=== PATIENT | male | born 1935 | race Caucasian/White ===

== ENCOUNTER 2017-08-28 14:43 | Emergency (ER) | payer OTHER, MEDICAID ==
[~2017-08-28] VITALS: Ht 182.9 cm; Wt 93.9 kg
[~2017-08-28 14:43] MED LIST: ACET325T53 PO; ALBU2.5V13 IH; ASPI-605 PO; CITA40TA22 PO; CLOP75TA15 PO; DOCU-141 PO; GABA400C PO; HYDR-3658 PO; INSU100V10 SQ; INSU100V7 SQ; IPRA42SP2 HHN; ISOS10TA2 PO; LACT10SO PO; LIDO30AD10 TP; METH5TAB70 PO; MIRT15TA PO; NICO-760 TD; OXYB5TAB29 PO; PANT40SU PO; POLY17PO4 PO; SIMV20TA2 PO; SITA100T PO; VENL150C2 PO; ZOLP10TA2 PO
--- NOTE | 2017-08-28 14:44 | NUR ---
BIB EMS WAS FOUND ALTERED AT [facility]. BS >400 IN FIELD. PT IS COMPLAINING OF BODY ACHES. PT PLACED ON CONT CARDIAC AND POX MONITORING, NAD. ALL NEEDS ARE ATTENDED, PENDING ER MD EVALUATION
[2017-08-28 15:23] LABS: BASOPHILS % (AUTO) 0.7 % (0.0-2.0); EOSINOPHILS # (AUTO) 0.1 /CMM (0.0-0.7); EOSINOPHILS % (AUTO) 3.5 % (0.0-6.0); HEMATOCRIT 41 % (39-51); HEMOGLOBIN 13.1 g/dL (13.5-17.5); LYMPHOCYTES # (AUTO) 1.6 /CMM (0.8-4.8); MEAN CORPUSCULAR HEMOGLOBIN 29 PG (26.0-33.0); MEAN CORPUSCULAR HGB CONC 32 g/dl (31.0-36.0); MEAN CORPUSCULAR VOLUME 89 fL (80-96); MONOCYTES # (AUTO) 0.3 /CMM (0.1-1.30); MONOCYTES % (AUTO) 8.6 % (2.0-12.0); NEUTROPHILS # (AUTO) 2.1 /CMM (1.8-8.9); NEUTROPHILS % (AUTO) 48.2 % (43.0-81.0); PLATELET COUNT (AUTO) 157 /CMM (150-450); RDW COEFFICIENT OF VARIATION 14.1 (11.5-15.0); RED BLOOD CELL COUNT(AUTO) 4.58 MIL/uL (4.5-6.0); WHITE BLOOD COUNT (AUTO) 4.1 K/uL (4.3-11.0)
[2017-08-28 15:46] LABS: TROPONIN I < 0.017 ng/mL (0.00-0.056)
[2017-08-28 15:47] LABS: ALANINE AMINOTRANSFERASE 17 U/L (12-78); ALBUMIN 3.3 g/dL (3.4-5.0); ALKALINE PHOSPHATASE 73 U/L (46-116); ASPARTATE AMINOTRANSFERASE 11 U/L (15-37); B-TYPE NATRIURETIC PEPTIDE 234 PG/ML (0-125); BILIRUBIN,TOTAL 0.2 mg/dL (0.2-1.0); CARBON DIOXIDE 35 mmol/L (21-32); CHLORIDE 102 mmol/L (98-107); CREATININE 1.2 mg/dL (0.6-1.3); POTASSIUM 4.7 mmol/L (3.5-5.1); SODIUM SERUM 140 mmol/L (136-145); TOTAL PROTEIN, SERUM 6.9 g/dL (6.4-8.2); UREA NITROGEN, BLOOD 14 mg/dL (7-18)
[2017-08-28 15:55] LABS: GLUCOSE 408 mg/dL (74-106)
[2017-08-28 16:07] LABS: INR 0.91 (0.87-1.13); PROTHROMBIN TIME 9.5 SECS (9.5-12.7)
--- NOTE | 2017-08-28 16:15 | NUR ---
[facility] DrYesica to
[2017-08-28 16:33] LABS: APPEARANCE,URINE CLEAR (CLEAR); BILIRUBIN,URINE NEGATIVE (NEGATIVE); BLOOD, URINE NEGATIVE Ery/uL (NEGATIVE); COLOR,URINE YELLOW (YELLOW); KETONES,URINE NEGATIVE (NEGATIVE); LEUKOCYTE ESTERASE ,URINE NEGATIVE (NEGATIVE); NITRITE, URINE NEGATIVE (NEGATIVE); PH,URINE 6.5 (5.0-8.0); PROTEIN,URINE NEGATIVE (NEGATIVE); UGLUCOSE 3+ mg/dL (NEGATIVE); UROBILINOGEN,URINE 0.2 EU/dL (0.2)
--- NOTE | 2017-08-28 16:47 | NUR ---
CALLED PHARMACY FOR INSULIN
[2017-08-28 16:53] LABS: BACTERIA,URINE Rare /HPF (None Seen); RBC,URINE 0-2 /HPF (0-2); SQUAMOUS EPITHELIAL CELL,UR Rare /HPF (None Seen); WBC,URINE 0-2 /HPF (0-3)
--- NOTE | 2017-08-28 16:59 | NUR ---
CALLED [facility] FOR TRANSPORT BACK TO [facility], ETA [phone]
[2017-08-28] MEDS: INSULIN LISPRO/ASPART 100 UNIT/ML CARTRIDGE SQ SCH (17:18)
--- NOTE | 2017-08-28 19:00 | NUR ---
Patient discharged to [facility] transport #[id number] in stable condition. Written and verbal after care instructions given. Patient verbalizes understanding of instruction.
--- NOTE | 2017-08-28 19:01 | NUR ---
IV removed. Catheter intact and site benign. Pressure and 4x4 applied to site. No bleeding noted.
[2017-08-28 19:02] VITALS: BP 137/74
== END 2017-08-28 19:07 | disposition home or self-care (01) ==
LOC: ER 14:44
DX: E11.65 Type 2 diabetes mellitus with hyperglycemia (principal); I10 Essential (primary) hypertension; Z95.1 Presence of aortocoronary bypass graft; Z98.890 Other specified postprocedural states; Z79.4 Long term (current) use of insulin; Z79.82 Long term (current) use of aspirin
CPT/HCPCS: 36415; 71010; 80048; 80076; 81001; 82962 ×2; 83880; 84484; 85025; 85730; 96372; 99285; A4606; J1815; Z7610; 81000-TC

== ENCOUNTER 2017-10-23 11:10 | Inpatient (IN) | payer OTHER, MEDICAID ==
[~2017-10-23] VITALS: Ht 175.3 cm; Wt 86.2 kg
[~2017-10-23 11:10] MED LIST changes: -HYDR-3658 PO; +HYDR-3980 PO
--- NOTE | 2017-10-23 11:10 | NUR ---
[id number] FROM [facility] FOR SOB, SPO2- 70'S % IN THE FIELD. DR REAVES AT BEDSIDE. PT PLACED IN GOWN AND MONITOR. IV PLACED 18G R AC. BLOOD DRAWN.
[2017-10-23] MEDS ORDERED: IV NS 0.9% 500 ML BAG IV ONE (11:30)
[2017-10-23 11:41] LABS: BASOPHILS # (AUTO) 0.1 /CMM (0.0-0.2); BASOPHILS % (AUTO) 0.9 % (0.0-2.0); EOSINOPHILS % (AUTO) 0.5 % (0.0-6.0); HEMATOCRIT 39 % (39-51); HEMOGLOBIN 12.4 g/dL (13.5-17.5); LYMPHOCYTES # (AUTO) 1.2 /CMM (0.8-4.8); MEAN CORPUSCULAR HEMOGLOBIN 28 PG (26.0-33.0); MEAN CORPUSCULAR HGB CONC 32 g/dl (31.0-36.0); MEAN CORPUSCULAR VOLUME 88 fL (80-96); MONOCYTES # (AUTO) 0.5 /CMM (0.1-1.30); MONOCYTES % (AUTO) 6.1 % (2.0-12.0); NEUTROPHILS % (AUTO) 76.5 % (43.0-81.0); PLATELET COUNT (AUTO) 314 /CMM (150-450); RDW COEFFICIENT OF VARIATION 15.8 (11.5-15.0); RED BLOOD CELL COUNT(AUTO) 4.48 MIL/uL (4.5-6.0); WHITE BLOOD COUNT (AUTO) 7.8 K/uL (4.3-11.0)
[2017-10-23] MEDS ORDERED: VANCOMYCIN 1 GM in IV D5W 250 ML IV ONE (12:00)
[2017-10-23] MEDS ORDERED: ACETAMINOPHEN 650 MG/SUPP.RECT RC ONE ×2 (12:00→12:01)
[2017-10-23] MEDS ORDERED: MEROPENEM 1 G in IV NS 0.9% 100 ML IV ONE (12:00)
[2017-10-23 12:02] LABS: CALCIUM, SERUM 9.5 mg/dL (8.5-10.1); CARBON DIOXIDE 36 mmol/L (21-32); CHLORIDE 103 mmol/L (98-107); CREATININE 1.3 mg/dL (0.6-1.3); GLUCOSE 301 mg/dL (74-106); POTASSIUM 4.7 mmol/L (3.5-5.1); SODIUM SERUM 146 mmol/L (136-145); TROPONIN I 0.392 ng/mL (0.00-0.056); UREA NITROGEN, BLOOD 26 mg/dL (7-18)
[2017-10-23 12:08] LABS: ALANINE AMINOTRANSFERASE 21 U/L (12-78); ALKALINE PHOSPHATASE 59 U/L (46-116); ASPARTATE AMINOTRANSFERASE 22 U/L (15-37); BILIRUBIN,DIRECT 0.1 mg/dL (0.0-0.2); BILIRUBIN,TOTAL 0.3 mg/dL (0.2-1.0)
[2017-10-23 12:13] LABS: INR 1.15 (0.87-1.13)
[2017-10-23] MEDS ORDERED: CHOL20004 PO (12:38)
[2017-10-23] MEDS ORDERED: OLAN5TAB3 PO (12:38)
[2017-10-23] MEDS ORDERED: CARV3.12 PO (12:38)
[2017-10-23] MEDS ORDERED: GLIP10TA11 PO (12:38)
[2017-10-23] MEDS ORDERED: OLAN2.5T3 PO (12:38)
[2017-10-23] MEDS ORDERED: ALBU8.5H8 INH (12:38)
[2017-10-23] MEDS ORDERED: HYDR-548 PO (12:38)
[2017-10-23] MEDS ORDERED: DEXT15DR6 EACHEYE (12:38)
[2017-10-23] MEDS ORDERED: INSU100V10 SQ (12:38)
[2017-10-23] MEDS ORDERED: ESOM40CA PO (12:38)
[2017-10-23] MEDS ORDERED: SENN-167 PO (12:38)
[2017-10-23] MEDS ORDERED: GUAI118L27 PO (12:38)
[2017-10-23 13:08] LABS: APPEARANCE,URINE Clear (CLEAR); BILIRUBIN,URINE SMALL (NEGATIVE); BLOOD, URINE Negative Ery/uL (NEGATIVE); COLOR,URINE Yellow (YELLOW); KETONES,URINE 15 (NEGATIVE); LEUKOCYTE ESTERASE ,URINE Negative (NEGATIVE); NITRITE, URINE Negative (NEGATIVE); PH,URINE 5.5 (5.0-8.0); PROTEIN,URINE Trace mg/dl (NEGATIVE); UGLUCOSE Negative (NEGATIVE); UROBILINOGEN,URINE 0.2 EU/dL (0.2)
[2017-10-23 13:26] LABS: BACTERIA,URINE Rare /HPF (None Seen); RBC,URINE 0-2 /HPF (0-2); SQUAMOUS EPITHELIAL CELL,UR Rare /HPF (None Seen)
--- NOTE | 2017-10-23 13:51 | NUR ---
CALLED NURSING SUP FOR BED
[2017-10-23] MEDS ORDERED: HYDROCODONE/APAP 10/325MG 1 EA TABLET PO PRN (14:30)
[2017-10-23] MEDS ORDERED: ONDANSETRON HCL/PF 4 MG/2 ML VIAL IVP PRN (15:00)
[2017-10-23] MEDS ORDERED: MAGNESIUM HYDROXIDE 30 ML UDC PO PRN (15:00)
[2017-10-23] MEDS ORDERED: MAG HYDROX/AL HYDROX/SIMETH 30 ML UDC PO PRN (15:00)
[2017-10-23] MEDS ORDERED: Z GUARD REMEDY 2 OZ OINT TP PRN (15:00)
[2017-10-23] MEDS ORDERED: ZOLPIDEM TARTRATE 5 MG TABLET PO PRN (15:00)
--- NOTE | 2017-10-23 15:04 | NUR ---
REPORT GIVEN TO MARGARET RAI FOR DONATO
--- NOTE | 2017-10-23 15:30 | NUR ---
PER [facility] PRIMARY PMD IS DR SAMUELS
--- NOTE | 2017-10-23 15:53 | NUR ---
PER DR ARVIND Ricardo, HE IS NOT PT'S AUTOMATIC STACKER. PER DR SAMUELS, OK TO ADMIT TO EPIC
--- NOTE | 2017-10-23 16:30 | NUR ---
TELE ADMIT FROM ER AFTER REPORT RECEIVED FROM TIFF RAI. PATIENT ORIENTED TO PRIMARY RN, UNIT, ROOM, BED, AND UNIT POLICIES REGARDING PATIENT CARE AND VISITING HOURS. PATIENT NOW ON CONTINUOUS TELEMETRY MONITORING; READING ON ARRIVAL IS 88 SR. PATIENT PLACED ON BEDSIDE OXYGEN WEIGHED BY BED SCALE AND ENCOURAGED TO CALL IF HE NEEDS ANYTHING. ALL QUESTIONS AND CONCERNS ADDRESSED. PATIENT VERBALIZED UNDERSTANDING.
[2017-10-23] MEDS ORDERED: FEE PK DOSING 1 MIN EA MC ONE (16:39)
[2017-10-23] MEDS: CARVEDILOL 3.125 MG TABLET PO SCH (17:00)
[2017-10-23] MEDS: HYDROCODONE/APAP 10/325MG 1 EA TABLET PO SCH (17:00)
[2017-10-23] MEDS: glipiZIDE 10 MG TABLET PO SCH (17:00)
[2017-10-23] MEDS ORDERED: DEXTROSE 50%-WATER 50 ML DISP.SYRIN IV PRN (17:00)
[2017-10-23] MEDS: INSULIN GLARGINE, 100 UNIT/ML CARTRIDGE SQ SCH (18:00)
[2017-10-23] MEDS: OLANZAPINE 2.5 MG TABLET PO SCH (18:53)
[2017-10-23] MEDS: OLANZAPINE 5 MG TABLET PO SCH (18:54)
[2017-10-23] MEDS: SENNOSIDES 8.6 MG TABLET PO SCH (18:54)
[2017-10-23] MEDS: BLOOD SUGAR DIAGNOSTIC 1 EACH STRIP IN SCH ×2 (18:54→21:54)
[2017-10-23] MEDS: PANTOPRAZOLE 40 MG VIAL IV SCH (19:11)
[2017-10-23] MEDS: CLOPIDOGREL BISULFATE 75 MG TABLET PO SCH (19:12)
[2017-10-23] MEDS: ASPIRIN EC 81 MG TABLET.DR PO SCH (19:12)
[2017-10-23] MEDS: ENOXAPARIN SODIUM 40 MG/0.4 ML DISP.SYRIN SQ SCH (19:12)
[2017-10-23] MEDS: FUROSEMIDE 40 MG/4 ML VIAL IV SCH (19:12)
--- NOTE | 2017-10-23 19:35 | NUR ---
LOCKSTITCH SHOULDER JOINER OPENING NOTES. RECEIVED PATIENT IN BED, ASLEEP, EASILY AROUSED WITH VERBAL STIMULI. ORIENTED X 2-3. IN NO APPARENT DISTRESS OR DISCOMFORT AT THIS TIME. RESPIRATION EVEN AND UNLABORED, DENIES SOB AT THIS TIME. RIGHT AC #18 HL, PATENT AND INTACT, FLASHED WITH NS. PATIENT IS ON TELE MONITOR WITH SR AND HEART RATE OF 88. NPO EXCEPT FOR MEDICATIONS. KEPT CLEAN AND COMFORTABLE IN BED. SAFETY MEASURES IN PLACE, BED IN LOW LOCKED POSITION WITH SIDE RAILS UP X2, CALL LIGHT WITHIN EASY REACH. WILL CONTINUE TO MONITOR.
--- NOTE | 2017-10-23 19:46 | NUR ---
CHANGE OF SHIFT REPORT PT RESTING COMFORTABLY IN BED. NO S/S OR C/O PAIN OR DISTRESS NOTED. SIDE RAILS UP X2, CALL LIGHT LEFT WITHIN REACH. PT KEPT CLEAN, DRY, AND COMFORTABLE. NO SIGNIFICANT CHANGES SINCE ADMISSION.
[2017-10-23 20:00] VITALS: BP 116/65
[2017-10-23] MEDS: MEROPENEM 500 MG in IV NS 0.9% 50 ML IV SCH (20:59)
[2017-10-23] MEDS ORDERED: MIRTAZAPINE 15 MG TABLET PO SCH (22:00)
--- NOTE | 2017-10-23 22:30 | NUR ---
BLOOD GLUCOSE CHECKED AT 2200 WITH LEVEL AT 144 MG/DL. NO INSULIN ADMINISTERED DUE TO PATIENT BEING ON NPO STATUS. MD AWARE. NO NEW ORDERS AT THIS TIME. WILL CONTINUE TO MONITOR.
[2017-10-23] MEDS: VANCOMYCIN 0.75 GM in IV D5W 250 ML IV SCH (23:49)
[2017-10-24] VITALS (30 sets, daily range): BP systolic 87–114; BP diastolic 46–78
[2017-10-24] MEDS: MEROPENEM 500 MG in IV NS 0.9% 50 ML IV SCH ×3 (05:11→21:20)
[2017-10-24 06:54] LABS: CHOLESTEROL 152 mg/dL (<200); HDL CHOLESTEROL 33 mg/dL (40-60); LDL 92 mg/dL (0-99); TRIGLYCERIDES 160 mg/dL (30-150)
[2017-10-24 06:59] LABS: ALANINE AMINOTRANSFERASE 12 U/L (12-78); ALBUMIN 2.7 g/dL (3.4-5.0); ALKALINE PHOSPHATASE 51 U/L (46-116); ASPARTATE AMINOTRANSFERASE 14 U/L (15-37); BILIRUBIN,TOTAL 0.3 mg/dL (0.2-1.0); CALCIUM, SERUM 8.8 mg/dL (8.5-10.1); CARBON DIOXIDE 39 mmol/L (21-32); CHLORIDE 105 mmol/L (98-107); CREATININE 1.3 mg/dL (0.6-1.3); GLUCOSE 130 mg/dL (74-106); MAGNESIUM 1.7 mg/dL (1.8-2.4); PHOSPHORUS 5.5 mg/dL (2.5-4.9); POTASSIUM 4.1 mmol/L (3.5-5.1); SODIUM SERUM 149 mmol/L (136-145); TOTAL PROTEIN, SERUM 7.2 g/dL (6.4-8.2); UREA NITROGEN, BLOOD 26 mg/dL (7-18)
[2017-10-24] MEDS ORDERED: VANCOMYCIN 0.75 GM in IV D5W 250 ML IV SCH (07:00)
[2017-10-24 07:01] LABS: BASOPHILS % (AUTO) 0.2 % (0.0-2.0); EOSINOPHILS # (AUTO) 0.3 /CMM (0.0-0.7); EOSINOPHILS % (AUTO) 3.9 % (0.0-6.0); HEMATOCRIT 37 % (39-51); HEMOGLOBIN 11.7 g/dL (13.5-17.5); LYMPHOCYTES # (AUTO) 0.8 /CMM (0.8-4.8); MEAN CORPUSCULAR HEMOGLOBIN 28 PG (26.0-33.0); MEAN CORPUSCULAR HGB CONC 31 g/dl (31.0-36.0); MEAN CORPUSCULAR VOLUME 88 fL (80-96); MONOCYTES # (AUTO) 0.7 /CMM (0.1-1.30); NEUTROPHILS # (AUTO) 5.6 /CMM (1.8-8.9); NEUTROPHILS % (AUTO) 75.9 % (43.0-81.0); PLATELET COUNT (AUTO) 259 /CMM (150-450); RDW COEFFICIENT OF VARIATION 15.9 (11.5-15.0); RED BLOOD CELL COUNT(AUTO) 4.22 MIL/uL (4.5-6.0); WHITE BLOOD COUNT (AUTO) 7.4 K/uL (4.3-11.0)
--- NOTE | 2017-10-24 07:05 | NUR ---
EMR ANALYST CLOSING NOTES. PATIENT IN BED, ASLEEP, EASILY AROUSED WITH VERBAL STIMULI. ORIENTED X 2-3. IN NO APPARENT DISTRESS OR DISCOMFORT AT THIS TIME. RESPIRATION EVEN AND UNLABORED, DENIES SOB AT THIS TIME. RIGHT AC #18 HL, PATENT AND INTACT, FLASHED WITH NS, IV SITE WRAPPED WITH A SLEEVE DUE TO PATIENT CONSTANTLY BENDING HIS ARM AND OCCLUDING THE ANTIBIOTIC INFUSION WHILE ASLEEP. PATIENT IS ON TELE MONITOR WITH SR AND HEART RATE OF 88. NPO EXCEPT FOR MEDICATIONS. KEPT CLEAN AND COMFORTABLE IN BED. SAFETY MEASURES IN PLACE, BED IN LOW LOCKED POSITION WITH SIDE RAILS UP X2, CALL LIGHT WITHIN EASY REACH. WILL ENDORSE TO DAYSHIFT NURSE FOR CONTINUATION OF CARE.
[2017-10-24] MEDS: INSULIN GLARGINE, 100 UNIT/ML CARTRIDGE SQ SCH ×2 (07:30→18:00)
--- NOTE | 2017-10-24 08:15 | NUR ---
ms rn received patient on bed, lethargic, arousable to name, patient is congested, coughing but unable to expectorate phlem, saturating 98% on 2 liters, will monitor patient.
[2017-10-24] MEDS: FUROSEMIDE 40 MG/4 ML VIAL IV SCH (09:00)
[2017-10-24] MEDS: SENNOSIDES 8.6 MG TABLET PO SCH ×2 (09:00→17:00)
[2017-10-24] MEDS: CLOPIDOGREL BISULFATE 75 MG TABLET PO SCH (09:00)
[2017-10-24] MEDS: OLANZAPINE 2.5 MG TABLET PO SCH (09:00)
[2017-10-24] MEDS: CARVEDILOL 3.125 MG TABLET PO SCH ×2 (09:00→17:00)
[2017-10-24] MEDS: glipiZIDE 10 MG TABLET PO SCH ×2 (09:00→18:34)
[2017-10-24] MEDS: ASPIRIN EC 81 MG TABLET.DR PO SCH (09:00)
[2017-10-24] MEDS: HYDROCODONE/APAP 10/325MG 1 EA TABLET PO SCH (09:00)
--- NOTE | 2017-10-24 09:50 | NUR ---
ms rn received abg result( pt is acidotic), reported to primary doctor.dr. tellez at the desk, will monitor patient.
--- NOTE | 2017-10-24 09:50 | NUR ---
REPORTED ABG RESULTS TO NURSE(CORIE).
--- NOTE | 2017-10-24 10:00 | NUR ---
PATIENT NT SUCTIONED TO OBTAIN LARGE AMOUNT OF THICK WHITE/PERDOMO SECRETIONS. Addendum: 10/24/17 at 1017 by PALMIRA CAMACHO RT NURSEDENILSON) AWARE.
[2017-10-24 10:01] LABS: THYROID STIMULATING HORMONE 0.81 uIU/mL (0.358-3.74)
--- NOTE | 2017-10-24 10:10 | NUR ---
ms gail frye at bedside, w/ orders made and carried out.
--- NOTE | 2017-10-24 10:10 | NUR ---
MONET REPORTED TO AT THIS TIME.
[2017-10-24] MEDS: BLOOD SUGAR DIAGNOSTIC 1 EACH STRIP IN SCH ×4 (10:11→22:57)
[2017-10-24 10:13] LABS: ABG BASE EXCESS 11.9 mmol/L; ABG OXYGEN SATURATION 91.4 % (92.0-98.5); ABG PCO2 80.1 mmHg (35.0-45.0); ABG PH 7.327 (7.350-7.450); ABG PO2 71.8 mmHg (75.0-100.0); AaDO2 33.3 mmHg; COHb 0.8 % (0.5-1.5); MetHb 0.2 % (0.0-1.5); O2Hb 90.5 % (94.0-97.0); SITE, ABG Right Radial; VENT MODE, BG NASAL CANNULA
[2017-10-24] MEDS: Magnesium 1GM/D5W 100ML PREMIX 100 ML IV SCH ×2 (10:14→11:14)
[2017-10-24] MEDS: PANTOPRAZOLE 40 MG VIAL IV SCH (10:15)
--- NOTE | 2017-10-24 10:30 | NUR ---
ms rn was seen by dr. tellez, w/ order to give narcan then transfer pt. to icu for bipap.
[2017-10-24] MEDS ORDERED: ALBUTEROL FS 2.5 MG/3 ML VIAL.NEB NEB PRN (11:30)
[2017-10-24] MEDS ORDERED: NALOXONE HCL 0.4 MG/ML AMPUL IV PRN (11:30)
[2017-10-24] MEDS: IPRATROPIUM NEB FS 0.5 MG/2.5 ML AMPUL.NEB NEB SCH ×5 (11:30→23:40)
[2017-10-24] MEDS: ALBUTEROL FS 2.5 MG/0.5 ML VIAL.NEB NEB SCH ×5 (11:30→23:40)
--- NOTE | 2017-10-24 11:30 | NUR ---
ms reynolds bs-178 - no coverage given,pt is npo.
[2017-10-24] MEDS: VANCOMYCIN 0.75 GM in IV D5W 250 ML IV SCH (11:40)
[2017-10-24] MEDS: methylPREDNISolone SOD SUCC 125 MG/2ML VIAL IV SCH ×2 (12:06→18:39)
--- NOTE | 2017-10-24 12:59 | NUR ---
Treatment scheduled for 11:30am not given due to not aware of patient. I was notified at this time by RN.
--- NOTE | 2017-10-24 13:40 | NUR ---
ms reynolds patient transferred to icu, report given to gail Turner.
--- NOTE | 2017-10-24 13:45 | NUR ---
FOILING MACHINE ADJUSTER PT TRANSFERRED FROM 3RD FLOOR TO ICU BY BED. REPORT RECEIVED FROM FLOOR RN. PT TRANSFERRED FOR INCREASING LETHARGY WITH WEAK COUGH. PT ADMITTED TO HOSPITAL FOR RESPIRATORY FAILURE DUE TO PNEUMONIA. PT AROUSEABLE TO VIGOROUS STIMULATION. HAS WEAK COUGH. PT CURRENTLY ON 2L NC. SUCTIONED NASOTRACHEALLY. WILL OBTAIN ABG AND PLACE ON BIPAP IF NEEDED.
[2017-10-24 17:49] LABS: ABG BASE EXCESS 8.8 mmol/L; ABG PCO2 77.8 mmHg (35.0-45.0); ABG PH 7.312 (7.350-7.450); ABG PO2 96.6 mmHg (75.0-100.0); AaDO2 99.1 mmHg; COHb 1.8 % (0.5-1.5); MetHb 0.3 % (0.0-1.5); O2Hb 93.9 % (94.0-97.0); SITE, ABG Right Radial; VENT MODE, BG BIPAP 15/5
[2017-10-24] MEDS: OLANZAPINE 5 MG TABLET PO SCH (18:00)
[2017-10-24] MEDS: INSULIN REGULAR, HUMAN 100 UNIT/ML 3 ML VIAL SQ PRN ×2 (18:40→22:54)
--- NOTE | 2017-10-24 19:32 | NUR ---
Patient resides at [facility] [phone]. He requires mod-max assist with adl's. He is non-ambulatory, he is confined to chair most of the time prior to admit per [facility] staff. Patient goes to [facility] once a week [phone]. [facility] will accept patient back once d/c. Addendum: 10/24/17 at 1932 by JOSE ALEJANDRO ANGELES RN Amended: Links added.
--- NOTE | 2017-10-24 19:41 | NUR ---
INSIDE SALES ACCOUNT MANAGER NOTE PT STILL DROWSY ABLE TO FOLLOW COMMANDS,TOLERATING BIPAP.SR ON TELE. IV SITES C/D/I/PATENT. PT'S CARE ENDORSED TO ZIPPER SLIDE ATTACHER RN FOR CONTINUITY OF CARE. BED IN LOW AND LOCKED POSITION. CALL LIGHT WITHIN REACH.
--- NOTE | 2017-10-24 19:58 | NUR ---
ICU/RN RECEIVED PT ON BIPAP RATE OF 16,I/E 20/5 40 % FIO2 40 %,SAT=98%.DROWSY BUT AROUSES EASILY,FOLLOWS SIMPLE COMMANDS.
[2017-10-24] MEDS: ENOXAPARIN SODIUM 40 MG/0.4 ML DISP.SYRIN SQ SCH (22:44)
[2017-10-25] VITALS (34 sets, daily range): BP systolic 84–134; BP diastolic 35–83
--- NOTE | 2017-10-25 02:00 | NUR ---
ICU/RN AWAKE ALERT,KICKING PILLOWS AND DISCONNECTED SELF FROM MONITOR.ORIENTED TO SELF AND SURROUNDINGS.FOLLOWS COMMANDS.MONITOR SHOWS SINUS RHYTHM.DENIES PAIN OR DISCOMFORT.
[2017-10-25] MEDS: methylPREDNISolone SOD SUCC 125 MG/2ML VIAL IV SCH ×5 (03:28→23:20)
[2017-10-25] MEDS: IPRATROPIUM NEB FS 0.5 MG/2.5 ML AMPUL.NEB NEB SCH ×5 (03:43→19:36)
[2017-10-25] MEDS: ALBUTEROL FS 2.5 MG/0.5 ML VIAL.NEB NEB SCH ×5 (03:43→19:36)
[2017-10-25] MEDS: VANCOMYCIN 500 MG VIAL ONE ×2 (04:02→04:18)
[2017-10-25] MEDS: VANCOMYCIN 0.75 GM in IV D5W 250 ML IV SCH ×3 (04:20→12:56)
--- NOTE | 2017-10-25 05:00 | NUR ---
ICU/RN VITAL SIGNS STABLE.WANTING SOMETHING TO EAT,RE-ENFORCED THE NEED FOR BIPAP AT THIS TIME.DENIES RESP DISTRESS AND DISCOMFORT.
[2017-10-25 05:09] LABS: BASOPHILS % (AUTO) 0.2 % (0.0-2.0); HEMATOCRIT 35 % (39-51); HEMOGLOBIN 11.1 g/dL (13.5-17.5); LYMPHOCYTES # (AUTO) 0.5 /CMM (0.8-4.8); LYMPHOCYTES % (AUTO) 9.4 % (20.0-44.0); MEAN CORPUSCULAR HEMOGLOBIN 28 PG (26.0-33.0); MEAN CORPUSCULAR HGB CONC 32 g/dl (31.0-36.0); MEAN CORPUSCULAR VOLUME 88 fL (80-96); MONOCYTES # (AUTO) 0.1 /CMM (0.1-1.30); MONOCYTES % (AUTO) 2.4 % (2.0-12.0); NEUTROPHILS # (AUTO) 4.5 /CMM (1.8-8.9); PLATELET COUNT (AUTO) 254 /CMM (150-450); RDW COEFFICIENT OF VARIATION 15.4 (11.5-15.0); RED BLOOD CELL COUNT(AUTO) 4.02 MIL/uL (4.5-6.0); WHITE BLOOD COUNT (AUTO) 5.1 K/uL (4.3-11.0)
[2017-10-25] MEDS: MEROPENEM 500 MG in IV NS 0.9% 50 ML IV SCH ×3 (05:15→22:19)
[2017-10-25 05:28] LABS: CARBON DIOXIDE 38 mmol/L (21-32); CHLORIDE 99 mmol/L (98-107); CREATININE 1.4 mg/dL (0.6-1.3); GLUCOSE 287 mg/dL (74-106); MAGNESIUM 2.5 mg/dL (1.8-2.4); POTASSIUM 4.5 mmol/L (3.5-5.1); SODIUM SERUM 142 mmol/L (136-145); UREA NITROGEN, BLOOD 33 mg/dL (7-18)
--- NOTE | 2017-10-25 07:15 | NUR ---
REMARKETING MANAGER NOTES RECEIVED PATIENT AOX 2-3 , ON BIPAP RATE OF 16 20/5 , FIO2 40% SPO2 OF 100% , RESPIRATIONS EVEN AND UNLABORED , SR 85 ON BEDSIDE MONITOR , IV OF R AC # 20 AND LUZ MARINA MIDLINE SL , ALL NEEDS ATTENDED , BED ON LOW AND LOCKED POSITION , SIDE RAILS X2 ,CALL LIGHT WITHIN REACH , HOB @ 35 , WILL CONTINUE TO MONITOR.
--- NOTE | 2017-10-25 07:25 | NUR ---
Received male pt on BiPAP. BiPAP is plugged into a red outlet, alarms are set and audible, and BVM is at bedside. Addendum: 10/25/17 at 0727 by ALEKSANDR CULP RT Amended: Links added.
[2017-10-25] MEDS: INSULIN GLARGINE, 100 UNIT/ML CARTRIDGE SQ SCH ×2 (07:30→17:04)
--- NOTE | 2017-10-25 07:45 | NUR ---
TYPESETTING SUPERVISOR NOTES PATIENT BIPAP HELD , PLACED PATIENT ON 3LPM NC SPO2 OF 98% WITH NO S/S OF DISTRESS , TOLERATING WELL , ABG ORDERED , RT NORMA AT BEDSIDE ,
[2017-10-25] MEDS: BLOOD SUGAR DIAGNOSTIC 1 EACH STRIP IN SCH ×2 (07:55→11:36)
[2017-10-25] MEDS: INSULIN REGULAR, HUMAN 100 UNIT/ML 3 ML VIAL SQ PRN ×4 (07:56→22:27)
[2017-10-25] MEDS: SENNOSIDES 8.6 MG TABLET PO SCH ×2 (08:15→16:02)
[2017-10-25] MEDS: LOSARTAN POTASSIUM 50 MG TABLET PO SCH (08:15)
[2017-10-25] MEDS: FUROSEMIDE 40 MG/4 ML VIAL IV SCH (08:15)
[2017-10-25] MEDS: PANTOPRAZOLE 40 MG VIAL IV SCH (08:15)
[2017-10-25] MEDS: CARVEDILOL 3.125 MG TABLET PO SCH ×2 (08:15→16:02)
[2017-10-25] MEDS: CLOPIDOGREL BISULFATE 75 MG TABLET PO SCH (08:15)
[2017-10-25] MEDS: ASPIRIN EC 81 MG TABLET.DR PO SCH (08:15)
[2017-10-25] MEDS: glipiZIDE 10 MG TABLET PO SCH ×2 (08:15→16:02)
[2017-10-25] MEDS: OLANZAPINE 2.5 MG TABLET PO SCH (08:16)
--- NOTE | 2017-10-25 09:30 | NUR ---
COMMUNITY PLANNER NOTES SEEN AND EVALUATED BY DR CASTANO , DISCUSSED LABS , LATEST V/S , AFEBRILE , OFF BIPAP SINCE 744 , ON 3LPM NC SPO2 OF 90 - 94% WITH NO S/S OF DISTRESS , TOLERATING WELL , ASKED ORDER FOR FC INSERTION PATIENT IS ON LASIX 40G IV . MD FLORES
[2017-10-25 10:29] LABS: ABG BASE EXCESS 12.4 mmol/L; ABG OXYGEN SATURATION 92.7 % (92.0-98.5); ABG PCO2 58.6 mmHg (35.0-45.0); ABG PH 7.438 (7.350-7.450); ABG PO2 67.7 mmHg (75.0-100.0); AaDO2 91.9 mmHg; COHb 1.1 % (0.5-1.5); MetHb 0.2 % (0.0-1.5); O2Hb 91.5 % (94.0-97.0); SITE, ABG Right Radial; VENT MODE, BG 3LNC
--- NOTE | 2017-10-25 10:32 | NUR ---
SUPERVISOR PYROTECHNIC LOADING NOTES NOTIFIED DR CASTANO REGARDING ABG RESULT , OFF BIPAP , ON 3LPM NC TOLERATING WELL WITH SPO2 OF 95 % , PER MD KEEP PATIENT ON NASAL CANNULA ,
--- NOTE | 2017-10-25 12:45 | NUR ---
VMWARE ARCHITECT NOTES CALLED DR CASTELLANOS , NOTIFIED PATIENT IS OFF BIPAP , VERIFIED IF HE WANTS TO START DIET , NOTED WITH EPISODES OF COUGHING WHILE GIVING WATER VIA SPOON , PER MD ORDER SWALLOW EVAL AND MAY RESTART PT ON CCHO DIET , DISCUSSED BLOOD SUGAR OF 285MG/DL @ 1200 ON ACHS MILD SLIDING SCALE , PT ON IV STEROIDS , PER MD CHANGE SLIDING SCALE TO MODERATE ACHS , ORDERS CARRIED OUT Addendum: 10/25/17 at 1248 by LATRELL MENESES RN RECEIVED TO ORDER FOR F/P PLACEMENT PT ON LASIX 40MG DAILY AND INCONTINENT .
[2017-10-25] MEDS: SOD FERRIC GLUC 125 MG in IV NS 0.9% 100 ML IV SCH (15:00)
--- NOTE | 2017-10-25 16:25 | NUR ---
JUKEBOX COIN COLLECTOR NOTES TRANSFERRED PT TO ROOM 119-1 VIA ACLS PROTOCOL REPORT GIVEN TO LYLA CHARGE NURSE , PATIENT STABLE AT THIS TIME AFEBRILE , TOLERATING 3LPM NC SPO2 OF 95% , DENIES SOB AND DISCOMFORT AT THIS TIME , PLACED TELE BOX FOR CARDIAC MONITORING Addendum: 10/25/17 at 1637 by LATRELL MENESES RN @ 1633 REPORT GIVEN TO JOSE FOR CONTINUITY OF CARE , ALL QUESTIONS ANSWERED .
--- NOTE | 2017-10-25 16:53 | NUR ---
BERT RN NOTE RECEIVED PATIENT FROM ICU ALERT .ORIENTED X2 PLACED ON TELE MONITOR SR 84 , NO SOB NOTED, 3L NC SAT 94% , WITH ARECHIGA CATH TO GRAVITY WITH YELLOW COLOR URINE ON KCI MATRES, RT UPPER ARM MID LINE IN PLACE, BED IN LOWEST AND LOCKED POSITION , PLAN OF CARE DISCUSSED WITH PATIENT, WILL CONT TO MONITOR CLOSELY ,
[2017-10-25] MEDS: BLOOD SUGAR DIAGNOSTIC 1 EACH STRIP VI SCH ×2 (17:03→22:25)
[2017-10-25] MEDS: OLANZAPINE 5 MG TABLET PO SCH (17:10)
--- NOTE | 2017-10-25 18:49 | NUR ---
BERT RN NOTE ALL NEEDS ATTENDED , FED BY STUFF, NOT IN ACUTE DISTRESS
--- NOTE | 2017-10-25 20:00 | NUR ---
RN INITIAL NOTE RECEIVED PATIENT IN BED .ORIENTED X2 PT ON TELE MONITOR SR 84 , NO SOB NOTED, 3L NC SAT 94% , WITH ARECHIGA CATH TO GRAVITY WITH YELLOW COLOR URINE ON KCI MATRES, RT UPPER ARM MID LINE IN PLACE, BED IN LOWEST AND LOCKED POSITION ,CALL LIGHT WITHIN REACH, PLAN OF CARE DISCUSSED WITH PATIENT, WILL CONT TO MONITOR CLOSELY.
[2017-10-25] MEDS: ENOXAPARIN SODIUM 40 MG/0.4 ML DISP.SYRIN SQ SCH (22:20)
[2017-10-26] VITALS (9 sets, daily range): BP systolic 96–104; BP diastolic 42–60
--- NOTE | 2017-10-26 00:02 | NUR ---
BIPAP SETTING CHANGES MADE PER DR CASTANO REQUEST. Addendum: 10/26/17 at 0351 by MARGARET MILLIGAN RT Amended: Links added.
[2017-10-26] MEDS: ALBUTEROL FS 2.5 MG/0.5 ML VIAL.NEB NEB SCH ×7 (00:07→23:31)
[2017-10-26] MEDS: IPRATROPIUM NEB FS 0.5 MG/2.5 ML AMPUL.NEB NEB SCH ×7 (00:07→23:31)
[2017-10-26] MEDS: MEROPENEM 500 MG in IV NS 0.9% 50 ML IV SCH ×3 (04:39→21:57)
[2017-10-26] MEDS: VANCOMYCIN 0.75 GM in IV D5W 250 ML IV SCH (05:42)
[2017-10-26] MEDS: methylPREDNISolone SOD SUCC 125 MG/2ML VIAL IV SCH ×3 (05:45→16:36)
--- NOTE | 2017-10-26 06:37 | NUR ---
RN CLOSING NOTE PATIENT IN BED .ORIENTED X2 PT ON TELE MONITOR SR 69, NO SOB NOTED, 2L NC SAT 96% ,PT HAD nocturnal bipap. WITH ARECHIGA CATH TO GRAVITY WITH YELLOW COLOR URINE ON KCI MATRES, RT UPPER ARM MID LINE IN PLACE, BED IN LOWEST AND LOCKED POSITION ,CALL LIGHT WITHIN REACH, PLAN OF CARE DISCUSSED WITH PATIENT, WILL ENDORSE TO AM RN.
[2017-10-26 07:04] LABS: CALCIUM, SERUM 8.9 mg/dL (8.5-10.1); CARBON DIOXIDE 38 mmol/L (21-32); CHLORIDE 98 mmol/L (98-107); CREATININE 1.2 mg/dL (0.6-1.3); GLUCOSE 282 mg/dL (74-106); POTASSIUM 3.8 mmol/L (3.5-5.1); SODIUM SERUM 141 mmol/L (136-145); UREA NITROGEN, BLOOD 41 mg/dL (7-18)
--- NOTE | 2017-10-26 07:29 | NUR ---
jessica rn note patient in bed. all needs attended , on tele monitor sr , on 2l nc no sob noted , with Garcia cath to gravity, rt upper arm mid line in place bed in lowest and locked position, call light within reach.plan of care discussed with patient , patient alert with confusion, will cont to monitor closely
[2017-10-26] MEDS: glipiZIDE 10 MG TABLET PO SCH ×2 (08:58→16:26)
[2017-10-26] MEDS: CLOPIDOGREL BISULFATE 75 MG TABLET PO SCH (09:00)
[2017-10-26] MEDS: CARVEDILOL 3.125 MG TABLET PO SCH ×2 (09:00→16:30)
[2017-10-26] MEDS: ASPIRIN EC 81 MG TABLET.DR PO SCH (09:01)
[2017-10-26] MEDS: OLANZAPINE 2.5 MG TABLET PO SCH (09:01)
[2017-10-26] MEDS: LOSARTAN POTASSIUM 50 MG TABLET PO SCH (09:01)
[2017-10-26] MEDS: PANTOPRAZOLE 40 MG VIAL IV SCH (09:01)
[2017-10-26] MEDS: SENNOSIDES 8.6 MG TABLET PO SCH ×2 (09:01→16:26)
[2017-10-26] MEDS: INSULIN REGULAR, HUMAN 100 UNIT/ML 3 ML VIAL SQ PRN ×4 (09:04→22:00)
[2017-10-26] MEDS: BLOOD SUGAR DIAGNOSTIC 1 EACH STRIP VI SCH ×4 (09:12→21:58)
[2017-10-26] MEDS: INSULIN GLARGINE, 100 UNIT/ML CARTRIDGE SQ SCH ×2 (09:15→18:17)
--- NOTE | 2017-10-26 12:00 | NUR ---
MS RN NOTE ALL NEEDS ATTENDED, FED PATIENT HAS POOR APPETITE
[2017-10-26] MEDS: SOD FERRIC GLUC 125 MG in IV NS 0.9% 100 ML IV SCH (13:58)
[2017-10-26] MEDS ORDERED: AZIT500T PO (14:39)
--- NOTE | 2017-10-26 15:00 | NUR ---
MS RN NOTE PER JAXSON PRASAD DNP OK TO DISCHARGE TO SNF ,SPOKE WITH LIN BEATER MACHINE OPERATOR , STATED THAT WILL CHECK WHAT PLACE HE WILL GO
[2017-10-26] MEDS: OLANZAPINE 5 MG TABLET PO SCH (17:37)
--- NOTE | 2017-10-26 19:29 | NUR ---
MS RN NOTE PER LIN FISHING CAPTAIN OK TO DISCHARGE TOMORROW NO BED AVAILABLE YET, WILL FOLLOW UP
--- NOTE | 2017-10-26 20:00 | NUR ---
RN INITIAL NOTE RECEIVED PATIENT IN BED. ORIENTED X2 CONFUSED, NO SOB NOTED, 3L NC SAT 94% , WITH ARECHIGA CATH TO GRAVITY WITH YELLOW COLOR URINE ON KCI MATRES, RT UPPER ARM MID LINE IN PLACE, BED IN LOWEST AND LOCKED POSITION ,CALL LIGHT WITHIN REACH, PLAN OF CARE DISCUSSED WITH PATIENT, WILL CONT TO MONITOR CLOSELY.
--- NOTE | 2017-10-26 21:41 | NUR ---
RT NOTE PATIENT PLACED ON BIPAP ON CURRENT ORDERED SETTINGS. PATIENT IS TOLERATING WITHOUT SIGNS OF RESPIRATORY DISTRESS. BIPAP IS PLUGGED INTO RED OUTLET. ALARMS ARE SET AND AUDIBLE. BVM IS AT PATIENT BEDSIDE. WILL CONTINUE TO MONITOR.
[2017-10-26] MEDS: ENOXAPARIN SODIUM 40 MG/0.4 ML DISP.SYRIN SQ SCH (21:59)
[2017-10-27] MEDS: VANCOMYCIN 0.75 GM in IV D5W 250 ML IV SCH ×2 (02:11→17:18)
[2017-10-27] MEDS: ALBUTEROL FS 2.5 MG/0.5 ML VIAL.NEB NEB SCH ×6 (03:31→22:36)
[2017-10-27] MEDS: IPRATROPIUM NEB FS 0.5 MG/2.5 ML AMPUL.NEB NEB SCH ×6 (03:31→22:36)
[2017-10-27] MEDS: MEROPENEM 500 MG in IV NS 0.9% 50 ML IV SCH ×3 (05:02→21:26)
[2017-10-27] MEDS: INSULIN GLARGINE, 100 UNIT/ML CARTRIDGE SQ SCH ×2 (07:30→17:22)
[2017-10-27] MEDS: BLOOD SUGAR DIAGNOSTIC 1 EACH STRIP VI SCH ×4 (07:30→21:26)
[2017-10-27 07:44] LABS: CALCIUM, SERUM 9.3 mg/dL (8.5-10.1); CHLORIDE 99 mmol/L (98-107); CREATININE 0.9 mg/dL (0.6-1.3); GLUCOSE 201 mg/dL (74-106); POTASSIUM 3.8 mmol/L (3.5-5.1); SODIUM SERUM 143 mmol/L (136-145); UREA NITROGEN, BLOOD 31 mg/dL (7-18)
[2017-10-27 07:45] LABS: CARBON DIOXIDE 40 mmol/L (21-32)
[2017-10-27 08:00] VITALS: BP_SYST 118; BP_SYST 125; BP_DIAS 56; BP_DIAS 65
--- NOTE | 2017-10-27 08:00 | NUR ---
MS RN NOTES RECEIVED PT ON BED SLEEPING ON BIPAP. A/O X 2 SATURATING WELL. IV ACCESS ON LUZ MARINA MIDLINE TKO NO SIGN OF PAIN OR REDNESS. HEAD OF BED ELEVATED. SIDE RAILS UP. CALL LIGHT WITHIN REACH. WILL CONTINUE TO MONITOR PT CLOSELY.
--- NOTE | 2017-10-27 08:30 | NUR ---
MS RN NOTES PT CO2 LEVEL 40. DOCTOR OMAIRA NOTIFIED. NO FURTHER ORDERS.
[2017-10-27] MEDS: glipiZIDE 10 MG TABLET PO SCH ×2 (09:22→17:19)
[2017-10-27] MEDS: PANTOPRAZOLE 40 MG VIAL IV SCH (09:22)
[2017-10-27] MEDS: LOSARTAN POTASSIUM 50 MG TABLET PO SCH (09:22)
[2017-10-27] MEDS: OLANZAPINE 2.5 MG TABLET PO SCH (09:22)
[2017-10-27] MEDS: methylPREDNISolone SOD SUCC 125 MG/2ML VIAL IV SCH (09:22)
[2017-10-27] MEDS: ASPIRIN EC 81 MG TABLET.DR PO SCH (09:23)
[2017-10-27] MEDS: CLOPIDOGREL BISULFATE 75 MG TABLET PO SCH (09:23)
[2017-10-27] MEDS: CARVEDILOL 3.125 MG TABLET PO SCH ×2 (09:23→17:00)
[2017-10-27] MEDS: SENNOSIDES 8.6 MG TABLET PO SCH ×2 (09:23→17:19)
[2017-10-27] MEDS: INSULIN REGULAR, HUMAN 100 UNIT/ML 3 ML VIAL SQ PRN ×2 (09:25→17:26)
[2017-10-27 11:13] LABS: *SPE A/G RATIO 0.9 (0.7-1.7); *SPE ALBUMIN 3.2 g/dL (2.9-4.4); *SPE ALPHA-1-GLOBULIN 0.3 g/dL (0.0-0.4); *SPE ALPHA-2-GLOBULIN 0.8 g/dL (0.4-1.0); *SPE BETA GLOBULIN 1.2 g/dL (0.7-1.3); *SPE GLOBULIN, TOTAL 3.4 g/dL (2.2-3.9); *SPE M-SPIKE Not Observed g/dL (Not Observed); *SPEGAMMA GLOBULIN 1.2 g/dL (0.4-1.8)
[2017-10-27] MEDS: SOD FERRIC GLUC 125 MG in IV NS 0.9% 100 ML IV SCH (15:29)
[2017-10-27 16:00] VITALS: BP 105/51
[2017-10-27] MEDS: OLANZAPINE 5 MG TABLET PO SCH (17:21)
--- NOTE | 2017-10-27 18:49 | NUR ---
MS RN NOTES NO ACUTE CHANGES NOTED DURING THE SHIFT. DUE MEDS GIVEN. SIDE RAILS UP. CALL LIGHT WITHIN REACH. WILL ENDORSED TO THE PM NURSE FOR DONATO.
--- NOTE | 2017-10-27 19:10 | NUR ---
MS RN NOTES RECEIVED PT IN BED, AWAKE, A/O X 2, FORGETFUL . NO DISTRESS, NO SOB NOTED. RESPIRATION IS EVEN AND UNLABORED. PT ON 02 @ 2LPM VIA NC BURAK WELL, O2 SAT IS 98 %. LUZ MARINA MIDLINE, INTACT AND PATENT. NO S/S OF INFECTION NOR INFILTRATION NOTED. NO C/O PAIN OR DISCOMFORT AT THIS TIME. ALL NEEDS ATTENDED AND MET. KEPT COMFORTABLE. SAFETY PRECAUTIONS OBSERVED. CALL LIGHT WITHIN REACH. WILL CONTINUE TO MONITOR.
[2017-10-27 20:00] VITALS: BP 148/72
--- NOTE | 2017-10-27 21:26 | NUR ---
BS : 203 AT THIS TIME, INSULIN SS OF 4 UNITS GIVEN. PT ON CCHO DIET BURAK WELL. PT EATING APPLE SAUCE AT THIS TIME. NO S/S OF HYPERGLYCEMIA NOTED. WILL CONTINUE TO MONITOR.
[2017-10-27] MEDS: *INSULIN REGULAR(HUMULIN R)HUM 100 UNIT/ML VIAL SQ PRN (21:32)
[2017-10-27] MEDS: ENOXAPARIN SODIUM 40 MG/0.4 ML DISP.SYRIN SQ SCH (21:33)
[2017-10-28] MEDS: IPRATROPIUM NEB FS 0.5 MG/2.5 ML AMPUL.NEB NEB SCH ×6 (03:11→23:21)
[2017-10-28] MEDS: ALBUTEROL FS 2.5 MG/0.5 ML VIAL.NEB NEB SCH ×6 (03:11→23:21)
[2017-10-28 04:00] VITALS: BP 102/58
[2017-10-28] MEDS: MEROPENEM 500 MG in IV NS 0.9% 50 ML IV SCH ×3 (05:24→20:09)
--- NOTE | 2017-10-28 06:56 | NUR ---
MS RN NOTES PT IN BED, ASLEEP AT THIS TIME, AROUSES EASILY. A/O X 2, FORGETFUL . NO DISTRESS, NO SOB NOTED. RESPIRATION IS EVEN AND UNLABORED. PT ON 02 @ 2LPM VIA NC BURAK WELL, O2 SAT IS 98 %. LUZ MARINA MIDLINE, INTACT AND PATENT. NO S/S OF INFECTION NOR INFILTRATION NOTED. NO C/O PAIN OR DISCOMFORT AT THIS TIME. ALL NEEDS ATTENDED AND MET. KEPT COMFORTABLE. SAFETY PRECAUTIONS OBSERVED. CALL LIGHT WITHIN REACH. WILL ENDORSE TO NEXT SHIFT FOR DONATO. .
[2017-10-28 07:44] LABS: CALCIUM, SERUM 9.1 mg/dL (8.5-10.1); CARBON DIOXIDE 39 mmol/L (21-32); CHLORIDE 102 mmol/L (98-107); CREATININE 0.8 mg/dL (0.6-1.3); GLUCOSE 64 mg/dL (74-106); POTASSIUM 3.9 mmol/L (3.5-5.1); SODIUM SERUM 143 mmol/L (136-145); UREA NITROGEN, BLOOD 25 mg/dL (7-18)
[2017-10-28 08:00] VITALS: BP 112/55
--- NOTE | 2017-10-28 08:00 | NUR ---
MS RN NOTES RECEIVED PT IN BED, AWAKE, A/O X 2, FORGETFUL . NO DISTRESS, NO SOB NOTED. RESPIRATION IS EVEN AND UNLABORED. PT ON 02 @ 2LPM VIA NC BURAK WELL, O2 SAT IS 98 %. LUZ MARINA MIDLINE, INTACT AND PATENT. NO S/S OF INFECTION NOR INFILTRATION NOTED.ARECHIGA CATHETER INTACT AND DRAINING CLEAR YELLOW URINE OUTPUT. NO C/O PAIN OR DISCOMFORT AT THIS TIME. ALL NEEDS ATTENDED AND MET. KEPT COMFORTABLE. SAFETY PRECAUTIONS OBSERVED. CALL LIGHT WITHIN REACH. WILL CONTINUE TO MONITOR
[2017-10-28] MEDS: CARVEDILOL 3.125 MG TABLET PO SCH ×2 (09:11→16:45)
[2017-10-28] MEDS: PANTOPRAZOLE 40 MG VIAL IV SCH (09:11)
[2017-10-28] MEDS: CLOPIDOGREL BISULFATE 75 MG TABLET PO SCH (09:12)
[2017-10-28] MEDS: ASPIRIN EC 81 MG TABLET.DR PO SCH (09:12)
[2017-10-28] MEDS: glipiZIDE 10 MG TABLET PO SCH ×2 (09:12→16:45)
[2017-10-28] MEDS: methylPREDNISolone SOD SUCC 125 MG/2ML VIAL IV SCH (09:12)
[2017-10-28] MEDS: SENNOSIDES 8.6 MG TABLET PO SCH ×2 (09:12→16:45)
[2017-10-28] MEDS: BLOOD SUGAR DIAGNOSTIC 1 EACH STRIP VI SCH ×4 (09:13→22:54)
[2017-10-28] MEDS: LOSARTAN POTASSIUM 50 MG TABLET PO SCH (09:13)
[2017-10-28] MEDS: OLANZAPINE 2.5 MG TABLET PO SCH (09:13)
[2017-10-28] MEDS: INSULIN GLARGINE, 100 UNIT/ML CARTRIDGE SQ SCH ×2 (10:34→18:50)
[2017-10-28] MEDS: VANCOMYCIN 0.75 GM in IV D5W 250 ML IV SCH (13:19)
[2017-10-28] MEDS: ACETAMINOPHEN 325 MG TABLET PO PRN ×2 (13:20→16:46)
[2017-10-28] MEDS: INSULIN REGULAR, HUMAN 100 UNIT/ML 3 ML VIAL SQ PRN ×2 (13:23→16:47)
[2017-10-28 16:00] VITALS: BP 115/56
[2017-10-28] MEDS: SOD FERRIC GLUC 125 MG in IV NS 0.9% 100 ML IV SCH (16:44)
[2017-10-28] MEDS: OLANZAPINE 5 MG TABLET PO SCH (16:45)
--- NOTE | 2017-10-28 19:15 | NUR ---
RN OPENING NOTE PATIENT IN BED, ALERT AND ORIENTED X 2, VERBALLY RESPONSIVE, NO SOB NOTED, BREATHING EVEN AND UNLABORED, IN NO ACUTE DISTRESS AT THIS TIME. ALL PATIENT'S NEEDS ATTENDED TO. WILL CONTINUE TO MONITOR.
[2017-10-28] MEDS: ENOXAPARIN SODIUM 40 MG/0.4 ML DISP.SYRIN SQ SCH (20:54)
[2017-10-29] VITALS: BP 111/45
--- NOTE | 2017-10-29 00:08 | NUR ---
PATIENT IN BED, WITH BIPAP ON, PATIENT VERBALIZED THAT HE DOES NOT NEED THE BIPAP AND WANTS IT TO BE TAKEN OFF. EXPLAINED RISKS AND BENEFITS TO PATIENT X 3 BUT PATIENT STILL CONTINUES TO INSIST THAT HE DOES NOT NEED IT. NOTED PATIENT GETTING AGITATED. RESPECTED PATIENT'S REQUEST. PLACED PATIENT ON NC RECEIVING 02 @2LPM WITH O2 SAT @ 95%. WILL CONTINUE TO MONITOR PT. RT INFORMED.
--- NOTE | 2017-10-29 00:36 | NUR ---
PT DID NOT TOLERATES BIPAP, PLACED BACK ON NASAL CANNULA, RN AWARE.
[2017-10-29] MEDS: IPRATROPIUM NEB FS 0.5 MG/2.5 ML AMPUL.NEB NEB SCH ×6 (03:50→23:37)
[2017-10-29] MEDS: ALBUTEROL FS 2.5 MG/0.5 ML VIAL.NEB NEB SCH ×6 (03:50→23:37)
[2017-10-29] MEDS: MEROPENEM 500 MG in IV NS 0.9% 50 ML IV SCH ×2 (04:04→14:29)
[2017-10-29] MEDS: VANCOMYCIN 0.75 GM in IV D5W 250 ML IV SCH (05:15)
--- NOTE | 2017-10-29 06:31 | NUR ---
RN CLOSING NOTE PATIENT IN BED, NO SOB NOTED, RECEIVING O2 VIA NC @2LPM WITH O2 SAT @ 95%, BREATHING EVEN AND UNLABORED, WITH NO C/O PAIN, IN NO ACUTE DISTRESS. ALL PATIENT'S NEEDS ATTENDED TO AT THIS TIME. WILL ENDORSE TO AM SHIFT NURSE FOR CONTINUITY OF CARE.
[2017-10-29 07:27] LABS: CALCIUM, SERUM 8.8 mg/dL (8.5-10.1); CARBON DIOXIDE 37 mmol/L (21-32); CHLORIDE 103 mmol/L (98-107); CREATININE 0.8 mg/dL (0.6-1.3); GLUCOSE 59 mg/dL (74-106); POTASSIUM 3.8 mmol/L (3.5-5.1); SODIUM SERUM 142 mmol/L (136-145); UREA NITROGEN, BLOOD 21 mg/dL (7-18)
[2017-10-29] MEDS: INSULIN GLARGINE, 100 UNIT/ML CARTRIDGE SQ SCH ×2 (07:30→17:33)
[2017-10-29 08:00] VITALS: BP_SYST 104; BP_SYST 108; BP_DIAS 39; BP_DIAS 49
--- NOTE | 2017-10-29 08:00 | NUR ---
RN NOTES RECEIVED PATIENT IN THE BED RESTING, NO ACUTE RESPIRATORY DISTRESS, CONGESTED, COUGHING, MIDLINE RIGHT UPPER ARM INTACT KEEP TKO, CALL LIGHT WITHIN TO REACH SAFETY PRECAUTION MAINTAINED ALL THE TIME.
--- NOTE | 2017-10-29 08:30 | NUR ---
RN NOTES BS-47 MG/DL, PATIENT A/O X3 ,NO S/S OF HYPOGLYCEMIA, ADMINISTERED 2 ORANGE JUICE, MILK, AND BREAKFAST, MD NOTIFIED. CONTINUED MONITORING.
[2017-10-29] MEDS: LOSARTAN POTASSIUM 50 MG TABLET PO SCH (09:00)
[2017-10-29] MEDS: CARVEDILOL 3.125 MG TABLET PO SCH ×2 (09:00→17:00)
[2017-10-29] MEDS: glipiZIDE 10 MG TABLET PO SCH ×2 (09:00→17:33)
[2017-10-29] MEDS: BLOOD SUGAR DIAGNOSTIC 1 EACH STRIP VI SCH ×4 (09:07→22:11)
[2017-10-29] MEDS: SENNOSIDES 8.6 MG TABLET PO SCH ×2 (09:36→17:32)
[2017-10-29] MEDS: PANTOPRAZOLE 40 MG VIAL IV SCH (09:36)
[2017-10-29] MEDS: methylPREDNISolone SOD SUCC 125 MG/2ML VIAL IV SCH (09:37)
[2017-10-29] MEDS: ASPIRIN EC 81 MG TABLET.DR PO SCH (09:39)
[2017-10-29] MEDS: OLANZAPINE 2.5 MG TABLET PO SCH (09:39)
[2017-10-29] MEDS: CLOPIDOGREL BISULFATE 75 MG TABLET PO SCH (09:40)
--- NOTE | 2017-10-29 09:41 | NUR ---
RN NOTES PATIENT A/O X3, HOLD BP MEDICATION BP 104. 49, AND GLUCOTROL LOW BLOOD GLUCOSE LEVEL, ASSIST TURN AND REPOSTION Q 2 HR, PATIENT HAS NO C/O PAIN AT THIS TIME. CALL LIGHT WITHIN TO REACH, CONTINUED MONITORING.
--- NOTE | 2017-10-29 13:00 | NUR ---
RN NOTES BS-236 MG/DL COVERAGE GIVEN, SCHEDULED MEDICATION ADMINISTERED, V/S STABLE. ASSIST TURN AND REPOSTION Q 2 HR, ALSO ASSIST EATING WITH HELP OF VOCATIONAL REHABILITATION SPECIALIST, NEEDS ATTENDED AND ANTICIPATED, CALL LIGHT WITHIN TO REACH, CONTINUED MONITORING.
[2017-10-29] MEDS: INSULIN REGULAR, HUMAN 100 UNIT/ML 3 ML VIAL SQ PRN ×2 (14:37→17:38)
[2017-10-29] MEDS: SOD FERRIC GLUC 125 MG in IV NS 0.9% 100 ML IV SCH (15:16)
[2017-10-29 16:00] VITALS: BP 98/60
--- NOTE | 2017-10-29 17:00 | NUR ---
RN NOTES BS-291MG/DL COVERAGE GIVEN, HOB KEEP ELEVATED, MONITORING ASPIRATION PRECAUTION USING THICKENER, PATIENT MED COMPLIANT, V/S STABLE, ASSIST TURN AND REPOSTION Q 2 HR, NEEDS ATTENDED AND ANTICIPATED, F/C DRAIN LIGHT YELLOW OUTPUT, ENCOURAGED TO INCREASE FLUID INTAKE. CALL LIGHT WITHIN TO REACH. ENDORSED ONCOMING NURSE FOR DONATO.
[2017-10-29] MEDS: OLANZAPINE 5 MG TABLET PO SCH (17:32)
--- NOTE | 2017-10-29 19:00 | NUR ---
RN NOTES PATIENT STABLE NO ACUTE, NO RESPIRATORY DISTRESS, ENDORSED ONCOMING NURSE FOR DONATO.
[2017-10-29 20:00] VITALS: BP 110/55
--- NOTE | 2017-10-29 20:00 | NUR ---
ms/rn notes patient on bed, alertx3, verbalize needs, provided comfort and blanket to keep warm stated it 's cold. offered fluid thickened, monitoring for any changes, report from am rn for brian, respirations even and unlabored, skin warm to touch, will continue to monitor,
[2017-10-29] MEDS: ENOXAPARIN SODIUM 40 MG/0.4 ML DISP.SYRIN SQ SCH (22:14)
[2017-10-29] MEDS: *INSULIN REGULAR(HUMULIN R)HUM 100 UNIT/ML VIAL SQ PRN (22:22)
[2017-10-30] VITALS: BP 110/55
--- NOTE | 2017-10-30 01:00 | NUR ---
ms/rn notes patient observe trying to pull mccormick catheter, and confused report that he wants to call police and go to hospital, also verbalizes wanted to harm self, monitoring and reported to charge nurse, follow up with md and continue to monitor events during the night.
[2017-10-30] MEDS: ALBUTEROL FS 2.5 MG/0.5 ML VIAL.NEB NEB SCH ×6 (03:33→23:20)
[2017-10-30] MEDS: IPRATROPIUM NEB FS 0.5 MG/2.5 ML AMPUL.NEB NEB SCH ×6 (03:33→23:20)
--- NOTE | 2017-10-30 03:37 | NUR ---
ms/rn notes WEI RIZO CONTACTED REGARDING PATIENT CONFUSION, PULLING ARECHIGA, ALERTX1, OBSERVE BLOOD IN URINE, DIARRHEA, ORDERED FOR URINE TO COLLECT CULTURE AND SENSITIVITY AND CBC IN MORNING. WILL CONTINUE TO MONITOR
[2017-10-30 04:00] VITALS: BP 120/58
--- NOTE | 2017-10-30 06:51 | NUR ---
ms/rn closing notes patient in bed, on cpap/bipap, monitoring for discomfort, require frequent orientation as patient had episode of comfusion, try to pull mccormick and verbalized self harm, observe blood in utine, and diarrhea 3 times during the morning and night, semi formed, cdiff protocol done , submitted to lab, reported to md with order to have cbc and urine collection r/o infrction. require restraint for safety. will endorse to am rn for brian.
[2017-10-30 06:54] LABS: BASOPHILS % (AUTO) 0.7 % (0.0-2.0); EOSINOPHILS # (AUTO) 0.1 /CMM (0.0-0.7); EOSINOPHILS % (AUTO) 0.9 % (0.0-6.0); HEMATOCRIT 37 % (39-51); HEMOGLOBIN 11.7 g/dL (13.5-17.5); LYMPHOCYTES # (AUTO) 1.6 /CMM (0.8-4.8); LYMPHOCYTES % (AUTO) 25.6 % (20.0-44.0); MEAN CORPUSCULAR HEMOGLOBIN 28 PG (26.0-33.0); MEAN CORPUSCULAR HGB CONC 32 g/dl (31.0-36.0); MEAN CORPUSCULAR VOLUME 87 fL (80-96); MONOCYTES # (AUTO) 0.4 /CMM (0.1-1.30); MONOCYTES % (AUTO) 6.9 % (2.0-12.0); NEUTROPHILS # (AUTO) 4.2 /CMM (1.8-8.9); NEUTROPHILS % (AUTO) 65.9 % (43.0-81.0); PLATELET COUNT (AUTO) 200 /CMM (150-450); RDW COEFFICIENT OF VARIATION 16.4 (11.5-15.0); RED BLOOD CELL COUNT(AUTO) 4.21 MIL/uL (4.5-6.0); WHITE BLOOD COUNT (AUTO) 6.3 K/uL (4.3-11.0)
[2017-10-30] MEDS: INSULIN GLARGINE, 100 UNIT/ML CARTRIDGE SQ SCH ×2 (07:30→17:10)
--- NOTE | 2017-10-30 07:30 | NUR ---
RN initial notes Patient alert and oriented x2-3, able to verbalize needs, no s/sx of agitation at this time, restraints removed at this time. No s/sx of respiratory distress noted. Patient denies pain. Needs attended and met. Call light within reach, will continue to monitor. Addendum: 10/30/17 at 1225 by RITIKA BUSTAMANTE RN Addendum: Patient denies any suicidal thoughts or ideation at this time. Patient is calm and cooperative. Patient verbalized "he feels bad last night because he cursed to the nurse."
[2017-10-30 07:52] LABS: CALCIUM, SERUM 8.7 mg/dL (8.5-10.1); CARBON DIOXIDE 34 mmol/L (21-32); CHLORIDE 103 mmol/L (98-107); GLUCOSE 68 mg/dL (74-106); POTASSIUM 3.6 mmol/L (3.5-5.1); SODIUM SERUM 143 mmol/L (136-145); UREA NITROGEN, BLOOD 19 mg/dL (7-18)
[2017-10-30 08:00] VITALS: BP 102/53
--- NOTE | 2017-10-30 08:15 | NUR ---
RN notes Patient's BS 45, patient alert and oriented x2-3, verbally reponsive, no change in LOC, no s/sx of hypoglycemia noted. Patient is given 2 [employer] Juice, Milk and breakfast. Insulin held, will re-check blood sugar in an hour.
[2017-10-30] MEDS: BLOOD SUGAR DIAGNOSTIC 1 EACH STRIP VI SCH ×4 (08:18→21:30)
[2017-10-30] MEDS: SENNOSIDES 8.6 MG TABLET PO SCH ×2 (09:00→16:40)
[2017-10-30] MEDS: CLOPIDOGREL BISULFATE 75 MG TABLET PO SCH (09:00)
[2017-10-30] MEDS: LOSARTAN POTASSIUM 50 MG TABLET PO SCH (09:00)
[2017-10-30] MEDS: CARVEDILOL 3.125 MG TABLET PO SCH ×2 (09:00→17:09)
[2017-10-30] MEDS: PANTOPRAZOLE 40 MG VIAL IV SCH (09:22)
[2017-10-30] MEDS: OLANZAPINE 2.5 MG TABLET PO SCH (09:23)
[2017-10-30] MEDS: methylPREDNISolone SOD SUCC 125 MG/2ML VIAL IV SCH (09:23)
[2017-10-30] MEDS: ASPIRIN EC 81 MG TABLET.DR PO SCH (09:23)
[2017-10-30] MEDS: glipiZIDE 10 MG TABLET PO SCH ×2 (09:23→17:09)
--- NOTE | 2017-10-30 09:29 | NUR ---
RN Notes Rechecked BS 112. Patient A/Ox2, patient has brown soft liquid stool. Senna medication held. Plavix held d/t hematuria. Urine culture sent this am, result still pending.
--- NOTE | 2017-10-30 10:00 | NUR ---
RN Notes Dr. Lopez aware of patient's verbalization of self harm last night, and sending a stool sample for c. diff. Per MD, patient is getting agitated because he wants to be discharged already. Case management still working on placement.
[2017-10-30 11:18] LABS: ABG BASE EXCESS 6.4 mmol/L; ABG OXYGEN SATURATION 94.9 % (92.0-98.5); ABG PCO2 48.8 mmHg (35.0-45.0); ABG PH 7.431 (7.350-7.450); AaDO2 61.1 mmHg; MetHb 0.2 % (0.0-1.5); O2Hb 93.8 % (94.0-97.0); SITE, ABG Right Radial; VENT MODE, BG NC 2L
[2017-10-30] MEDS: INSULIN REGULAR, HUMAN 100 UNIT/ML 3 ML VIAL SQ PRN ×2 (12:19→17:10)
[2017-10-30 16:00] VITALS: BP 107/62
[2017-10-30] MEDS: OLANZAPINE 5 MG TABLET PO SCH (17:09)
--- NOTE | 2017-10-30 18:37 | NUR ---
RN Notes Patient a/ox2, verbally responsive, no s/sx of distress noted. Patient calm and cooperative, no agitation or anxiety noted. Restraints were off throughout the shift. No s/sx of hypoglycemia noted. Patient only had 1 soft liquid BM this shift, senna was held. Patient is still waiting for placement. All needs attended and met. Turned and repositioned. Call light within reach, Will endorse to awake overnight monitor for brian.
--- NOTE | 2017-10-30 21:10 | NUR ---
PT DID NOT TOLERATE BIPAP AT THIS TIME. PT PLACED BACK ON NASAL CANNULA ON 2L. CECELIA RANDALL IS AWARE.
[2017-10-30] MEDS: ENOXAPARIN SODIUM 40 MG/0.4 ML DISP.SYRIN SQ SCH (21:25)
[2017-10-30] MEDS: *INSULIN REGULAR(HUMULIN R)HUM 100 UNIT/ML VIAL SQ PRN (21:40)
[2017-10-31] VITALS: BP 113/61
[2017-10-31] MEDS: IPRATROPIUM NEB FS 0.5 MG/2.5 ML AMPUL.NEB NEB SCH ×6 (03:38→23:13)
[2017-10-31] MEDS: ALBUTEROL FS 2.5 MG/0.5 ML VIAL.NEB NEB SCH ×6 (03:38→23:13)
[2017-10-31 07:00] LABS: CALCIUM, SERUM 8.9 mg/dL (8.5-10.1); CHLORIDE 104 mmol/L (98-107); CREATININE 0.8 mg/dL (0.6-1.3); POTASSIUM 3.7 mmol/L (3.5-5.1); SODIUM SERUM 144 mmol/L (136-145); UREA NITROGEN, BLOOD 15 mg/dL (7-18)
--- NOTE | 2017-10-31 07:15 | NUR ---
RN OPENING NOTES RECEIVED PT. IN BED A&OX1-2, CONFUSED. BREATHING UNLABORED ON OXYGEN AT 1.5L/MIN VIA NASAL CANNULA. IV ACCESS ON RIGHT UPPER ARM IS INTACT AND PATENT. PT. HAS BILATERAL SOFT WRIST RESTRAINTS DUE TO PT. PREVIOUSLY PULLING ON IV LINES, AND NASAL CANNULA. BED IS IN LOWEST, AND LOCKED POSITION, 2 SIDE RAILS UP, AND CALL LIGHT IS WITHIN REACH. ALL NEEDS MET . WILL CONTINUE TO ASSESS AND MONITOR.
[2017-10-31 07:23] LABS: CARBON DIOXIDE 40 mmol/L (21-32); GLUCOSE 43 mg/dL (74-106)
[2017-10-31] MEDS: BLOOD SUGAR DIAGNOSTIC 1 EACH STRIP VI SCH ×4 (07:30→21:00)
[2017-10-31] MEDS: INSULIN GLARGINE, 100 UNIT/ML CARTRIDGE SQ SCH (07:30)
[2017-10-31] MEDS: DEXTROSE 50%-WATER 50 ML DISP.SYRIN IV PRN (07:32)
--- NOTE | 2017-10-31 07:37 | NUR ---
RN NOTES LAB CALLED TO REPORT CRITICAL LAB VALUES. PT.'S BLOOD GLUCOSE IS 43, AND CO2 WAS 40. DEXTROSE 50 % WAS GIVE IVP.
[2017-10-31 08:00] VITALS: BP 101/47
--- NOTE | 2017-10-31 08:24 | NUR ---
RN NOTES NEW BLOOD SUGAR CHECK, 141 MG/DL. PT. IS HAVING BREAKFAST.
--- NOTE | 2017-10-31 08:39 | NUR ---
RN NOTES REPORTED CRITICAL LABS TO MD, GLUCOSE, AND CO2. NEW ORDER GIVEN TO CHANGE PT.'S LONG ACTING LANTUS INSULIN TO 28 UNITS IN AM, AND OKAY TO CONTINUE TO HOLD LANTUS DOSE TODAY.
[2017-10-31] MEDS: LOSARTAN POTASSIUM 50 MG TABLET PO SCH (09:00)
[2017-10-31] MEDS: CARVEDILOL 3.125 MG TABLET PO SCH ×2 (09:00→17:00)
[2017-10-31] MEDS: methylPREDNISolone SOD SUCC 125 MG/2ML VIAL IV SCH (09:40)
[2017-10-31] MEDS: glipiZIDE 10 MG TABLET PO SCH ×2 (09:40→17:40)
[2017-10-31] MEDS: PANTOPRAZOLE 40 MG VIAL IV SCH (09:40)
[2017-10-31] MEDS: CLOPIDOGREL BISULFATE 75 MG TABLET PO SCH (09:41)
[2017-10-31] MEDS: ASPIRIN EC 81 MG TABLET.DR PO SCH (09:41)
[2017-10-31] MEDS: OLANZAPINE 2.5 MG TABLET PO SCH (09:41)
[2017-10-31] MEDS: SENNOSIDES 8.6 MG TABLET PO SCH ×2 (09:41→17:40)
[2017-10-31] MEDS: INSULIN REGULAR, HUMAN 100 UNIT/ML 3 ML VIAL SQ PRN ×2 (11:51→17:49)
[2017-10-31 16:00] VITALS: BP 106/45
[2017-10-31] MEDS: OLANZAPINE 5 MG TABLET PO SCH (17:45)
--- NOTE | 2017-10-31 19:38 | NUR ---
RN CLOSING NOTES PT. IS IN BED A&OX2, CONFUSED. BREATHING UNLABORED ON OXYGEN AT 1 L/MIN VIA NASAL CANNULA. IV ACCESS ON RIGHT UPPER ARM IS INTACT AND PATENT. ARECHIGA CATHETER HAD 450 CC OUTPUT TOTAL OF URINE. PT. HAD SIGNS OF BLEEDING WITH CLOTS IN URINE, MD WAS NOTIFIED ABOUT PT.'S URINE AND NO NEW ORDERS WERE GIVEN. BED IS IN LOWEST, AND LOCKED POSITION, 2 SIDE RAILS UP, AND CALL LIGHT IS WITHIN REACH. ALL NEEDS MET . WILL ENDORSE REPORT TO NURSE.
--- NOTE | 2017-10-31 19:50 | NUR ---
RN INITIAL NOTES PT IS IN BED AWAKE AND ALERT X1-2, CONFUSED. RECEIVING BREATHING TX, OTHERWISE ON NC 1.5L. IV ACCESS IS INTACT AND PATENT. ARECHIGA CATHETER IS INTACT AND DRAINING. BED IS IN LOW AND LOCKED POSITION, CALL LIGHT WITHIN REACH. WILL CONTINUE TO MONITOR PT
[2017-10-31] MEDS: ENOXAPARIN SODIUM 40 MG/0.4 ML DISP.SYRIN SQ SCH (20:59)
[2017-10-31] MEDS: ACETAMINOPHEN 325 MG TABLET PO PRN (21:00)
[2017-10-31] MEDS: *INSULIN REGULAR(HUMULIN R)HUM 100 UNIT/ML VIAL SQ PRN (21:05)
--- NOTE | 2017-10-31 23:13 | NUR ---
PT REFUSED BIPAP AT NIGHT. NO RESPIRATORY DISTRESS NOTED, CECELIA MARTINEZ NOTIFIED.
[2017-11-01] MEDS: IPRATROPIUM NEB FS 0.5 MG/2.5 ML AMPUL.NEB NEB SCH ×4 (03:26→15:32)
[2017-11-01] MEDS: ALBUTEROL FS 2.5 MG/0.5 ML VIAL.NEB NEB SCH ×4 (03:26→15:32)
[2017-11-01] MEDS: BLOOD SUGAR DIAGNOSTIC 1 EACH STRIP VI SCH ×3 (05:59→17:09)
[2017-11-01] MEDS: DEXTROSE 50%-WATER 50 ML DISP.SYRIN IV PRN (06:06)
--- NOTE | 2017-11-01 06:09 | NUR ---
MS RN NOTE PT BS NOTED TO BE 36, PT IS AWAKE AND ALERT, ABLE TO RESPOND TO QUESTIONS APPROPRIATELY, A LITTLE LETHARGIC. D5 WAS PUSHED. WILL RECHECK BS AGAIN
--- NOTE | 2017-11-01 06:27 | NUR ---
MS RN NOTES BS IS NOW 147
--- NOTE | 2017-11-01 06:40 | NUR ---
MS RN NOTES PT IS IN BED RESTING. NO SIGNS OF SOB OR DISTRESS. ON 2L NC, BREATHING EVENLY AND UNLABORED. BED IS IN LOW AND LOCKED POSITION, CALL LIGHT WITHIN REACH. WILL ENDORSE TO DAYSHIFT
--- NOTE | 2017-11-01 07:10 | NUR ---
RN OPENING NOTES. PT A&0X2 BELGIAN AND KOREAN SPEAKING, WITH CONFUSION. PT WITH O2 VIA NC AT 2LPM, BREATHING EQUAL AND UN LABORED, RHONCHI ON AUSCULTATION. PT DENIES PAIN. PT WITH R UA MIDLINE INTACT AND SALINE FLUSH PATENT. PT WITH ARECHIGA INTACT AND OPERATIONAL WITH HENRIQUE YELLOW URINE IN COLLECTION. PT BED IN LOWEST LOCKED POSITION WITH HANDRAILSX4 AND CALL JOHNSON WITHIN REACH. PT BRIEFED ON TODAY'S POC BUT REQUIRES CONTINUED REORIENTATION.
[2017-11-01 07:18] LABS: CALCIUM, SERUM 8.8 mg/dL (8.5-10.1); CARBON DIOXIDE 35 mmol/L (21-32); CHLORIDE 103 mmol/L (98-107); CREATININE 0.9 mg/dL (0.6-1.3); GLUCOSE 219 mg/dL (74-106); POTASSIUM 3.5 mmol/L (3.5-5.1); SODIUM SERUM 141 mmol/L (136-145); UREA NITROGEN, BLOOD 15 mg/dL (7-18)
[2017-11-01] MEDS ORDERED: INSULIN GLARGINE, 100 UNIT/ML CARTRIDGE SQ SCH (07:30)
[2017-11-01 08:00] VITALS: BP 119/54
[2017-11-01] MEDS: CARVEDILOL 3.125 MG TABLET PO SCH ×2 (09:00→17:00)
[2017-11-01] MEDS ORDERED: methylPREDNISolone SOD SUCC 125 MG/2ML VIAL IV SCH (09:00)
[2017-11-01] MEDS: ASPIRIN EC 81 MG TABLET.DR PO SCH (09:07)
[2017-11-01] MEDS: SENNOSIDES 8.6 MG TABLET PO SCH ×2 (09:11→17:08)
[2017-11-01] MEDS: PANTOPRAZOLE 40 MG VIAL IV SCH (09:11)
[2017-11-01] MEDS: CLOPIDOGREL BISULFATE 75 MG TABLET PO SCH (09:11)
[2017-11-01] MEDS: LOSARTAN POTASSIUM 50 MG TABLET PO SCH (09:11)
[2017-11-01] MEDS: glipiZIDE 10 MG TABLET PO SCH ×2 (09:11→17:08)
[2017-11-01] MEDS: OLANZAPINE 2.5 MG TABLET PO SCH (09:11)
[2017-11-01 10:05] VITALS: BP 119/54
[2017-11-01] MEDS: INSULIN REGULAR, HUMAN 100 UNIT/ML 3 ML VIAL SQ PRN ×2 (12:57→17:22)
--- NOTE | 2017-11-01 13:00 | NUR ---
RN NOTES. PT ENDORSED TO [facility] AT [facility]. [phone]
[2017-11-01 16:00] VITALS: BP 91/51
--- NOTE | 2017-11-01 16:00 | NUR ---
RN D/C NOTE. PT PREPARED FOR D/C PER MD. PT [id number], CONFUSED WITH PERIODS OF CLARITY. PT DENIES SOB. PT REPORTING NO PAIN. PT VOIDED POST [employer] REMOVAL. PT WITH ALL BELONGINGS AND DOCUMENT SIGNED BY RNX2. PT BRIEFED ON [facility] BUT UNABLE TO COMPREHEND. SO D/C SIGNED BY RNX2 AND PROVIDED TO EMT CREW. PT MIDLINE REMOVED AND COMPRESSION BANDAGE APPLIED, MANOLO AT FACILITY AWARE AND TO REMOVE, EMT TO REMIND IF NEEDED. ALL DAY NURSE DUTIES ATTENDED TO AND PT IS WITHOUT CONCERN OR COMPLAINT AT THIS TIME. PT TRANSPORT WITH EMT CREW
[2017-11-01 17:00] VITALS: BP 96/51
[2017-11-01] MEDS: OLANZAPINE 5 MG TABLET PO SCH (17:08)
== END 2017-11-01 18:12 | DRG 177 ==
LOC: ER 11:12 → TELE 15:11 → ICU 10-24 12:47 → TELE1 10-25 16:40 → TELE-TD 10-25 16:48 → MEDSG1 10-26 11:26
PROVIDERS: ADMIT Internal Medicine; ATTEND Internal Medicine
PROC: 5A09357 Assistance with Respiratory Ventilation, Less than 24 Consecutive Hours, Continuous Positive Airway Pressure (ICD-10-PCS; principal; 2017-10-24)
PROC: 05H533Z Insertion of Infusion Device into Right Subclavian Vein, Percutaneous Approach (ICD-10-PCS; principal; 2017-10-24)
PROC: B546ZZA Ultrasonography of Right Subclavian Vein, Guidance (ICD-10-PCS; principal; 2017-10-24)
DX: J15.6 Pneumonia due to other Gram-negative bacteria (principal); J96.21 Acute and chronic respiratory failure with hypoxia; I21.A1 Myocardial infarction type 2; G92 Toxic encephalopathy; I50.33 Acute on chronic diastolic (congestive) heart failure; D69.6 Thrombocytopenia, unspecified; E11.22 Type 2 diabetes mellitus with diabetic chronic kidney disease; N18.3 Chronic kidney disease, stage 3 (moderate); J96.22 Acute and chronic respiratory failure with hypercapnia; I13.0 Hypertensive heart and chronic kidney disease with heart failure and stage 1 through stage 4 chronic kidney disease, or unspecified chronic kidney disease; E66.2 Morbid (severe) obesity with alveolar hypoventilation; J44.0 Chronic obstructive pulmonary disease with (acute) lower respiratory infection; J44.1 Chronic obstructive pulmonary disease with (acute) exacerbation; E11.649 Type 2 diabetes mellitus with hypoglycemia without coma; Z95.1 Presence of aortocoronary bypass graft; F03.90 Unspecified dementia, unspecified severity, without behavioral disturbance, psychotic disturbance, mood disturbance, and anxiety; Z86.73 Personal history of transient ischemic attack (TIA), and cerebral infarction without residual deficits; Z79.899 Other long term (current) drug therapy; Z79.4 Long term (current) use of insulin; Z91.018 Allergy to other foods; E66.9 Obesity, unspecified; Z79.82 Long term (current) use of aspirin; I25.10 Atherosclerotic heart disease of native coronary artery without angina pectoris; E03.9 Hypothyroidism, unspecified; E78.5 Hyperlipidemia, unspecified; D64.9 Anemia, unspecified; F17.200 Nicotine dependence, unspecified, uncomplicated; Z51.5 Encounter for palliative care; I11.0 Hypertensive heart disease with heart failure
CPT/HCPCS: 31720; 36415; 36569; 36600; 71045-TC; 80048-TC; 80053-TC; 80061-TC; 80076-TC; 80202-TC; 81000-TC; 82306; 82728-TC; 82803-TC; 82945-TC; 82962-TC; 83540-TC; 83605-TC; 83735-TC; 84100-TC; 84155; 84165; 84439-TC; 84443-TC; 84484-TC; 85025-TC; 85730-TC; 87040-TC; 87081-TC; 87086-TC; 92526; 92611-TC; 93307-TC; 94660; 94760-TC; 94799-TC; 97110-TC; 97530-TC; A4216; A4606; C9113; J1650; J1815; J1940; J2185; J2310; J2916; J2930; J3370; J3475; J7030; J7040; J7060